=== PATIENT | male | born 1955 | race Caucasian/White ===

== ENCOUNTER 2018-11-06 09:39 | Emergency (ER) | payer MEDICAID ==
[~2018-11-06] VITALS: Ht 175.3 cm; Wt 98.4 kg
--- NOTE | 2018-11-06 10:21 | NUR ---
patient safe in [facility], in obvious pain, IV started by this RN and blood drawn with start, patient experiencing waves/spasms of pain, bladder scan by this RN showing no more than 37mL but patient's report of pain sounds like full bladder sensation. multiple episodes of gross hematuria today passed from penis, no urine flowing to urostomy bag today, patient has tried to flush the ostomy and there was back pressure, flush unsuccessful. This RN to request pain medicine from MD, patient reports 9/10 during spasms.
[2018-11-06] MEDS ORDERED: MORPHINE SULFATE 4 MG/ML, 1ML ONE (10:25)
--- NOTE | 2018-11-06 10:29 | NUR ---
MD Dao at bedside for assessment, verbal order for morphine IV 4 mg which has been given now, verbal order received for irrigation of urostomy tube.
[2018-11-06 10:40] LABS: BASOPHILS # (AUTO) 0.03 x10^3/uL (0-0.1); BASOPHILS % (AUTO) 0 % (0-1); EOSINOPHILS # (AUTO) 0.23 x10^3/uL (0-0.4); EOSINOPHILS % (AUTO) 3 % (1-7); LYMPHOCYTES # (AUTO) 1.14 x10^3/uL (1-3.4); LYMPHOCYTES % (AUTO) 15 % (22-44); MD NO; MEAN CORPUSCULAR HGB CONC 34.7 g/dL (33.2-36.2); MEAN CORPUSCULAR VOLUME 89.3 fL (81-97); MEAN PLATELET VOLUME 8.3 fL (7.4-10.4); MONOCYTES # (AUTO) 0.74 x10^3/uL (0.2-0.8); MONOCYTES % (AUTO) 10 % (2-9); NEUTROPHILS # (AUTO) 5.46 x10^3/uL (1.8-6.8); NEUTROPHILS % (AUTO) 72 % (42-75); PLATELET COUNT 268 x10^3/uL (130-400); RED BLOOD COUNT 4.88 x10^6/uL (4.38-5.82)
[2018-11-06 10:50] LABS: ALBUMIN 3.8 g/dL (3.4-5.0); ANION GAP 8 mmol/L (5-15); CALCIUM 9.5 mg/dL (8.5-10.1); CHLORIDE 106 mmol/L (98-107); CREATININE 0.96 mg/dL (0.7-1.3)
[2018-11-06] MEDS ORDERED: MORPHINE SULFATE 4 MG/ML, 1ML IVPush PRN (11:00)
--- NOTE | 2018-11-06 11:15 | NUR ---
this RN flushed approx 35 mL into patient's urostomy tube, mucus with scant blood has evacuated the tubing, patient voided a small amount of bloody fluid following this flushing. at this time he reports essentially no pain, POC discussed with MD, and straight catheterization to be held, additional flushing with sterile NS to be performed, clean catch UA to be attempted. 2nd dose of morphine available, patient updated of plan.
[2018-11-06 11:44] VITALS: BP 134/71
--- NOTE | 2018-11-06 11:45 | NUR ---
TASK RN: FIRST CONTACT WITH PT: Pt denies pain at this time. Pt states, "I don't know if it was the morphine, but I also was able to empty my bladder and relieve myself." Pt AOX4, NADN. Pt aware of need of urine sample for UA. Pt states, "I can't go now, I have gone three times since I have been here now." Pt educated to press call light button for assistance up to bathroom. Pt states verbal understanding. All safety measures in place. No needs expressed at this time.
--- NOTE | 2018-11-06 12:49 | NUR ---
patient voiding well, dark bloody urine, no discomfort, UA sent to lab, girlfriend accompanying, clean sheets/chucks/gown provided, blankets given, no other needs now.
[2018-11-06 12:50] LABS: CULTURE INDICATED? YES; MICROSCOPIC INDICATED
--- NOTE | 2018-11-06 13:29 | NUR ---
Plan of care discussed with MD Dao upon recheck, he has gone back to bedside for re assessment
--- NOTE | 2018-11-06 13:41 | NUR ---
LAB CALLED CORRECTING ORIGINAL UA REPORT
== END 2018-11-06 14:46 | disposition home or self-care (01) ==
LOC: ED 12:03
DX: N30.01 Acute cystitis with hematuria (principal); Z85.46 Personal history of malignant neoplasm of prostate
CPT/HCPCS: 36415; 80048; 81001; 82040; 85025; 87077; 87086; 87186; 96372; 99283

== ENCOUNTER 2019-01-02 16:09 | Emergency (ER) | payer MEDICAID ==
[~2019-01-02] VITALS: Ht 175.3 cm; Wt 99.7 kg
--- NOTE | 2019-01-02 16:12 | NUR ---
Pt in bathroom when called for triage.
[2019-01-02] MEDS ORDERED: MORPHINE SULFATE 4 MG/ML, 1ML ONE (16:53)
[2019-01-02] MEDS ORDERED: MORPHINE SULFATE 4 MG/ML, 1ML IVPush PRN (17:00)
[2019-01-02] MEDS ORDERED: LIDOCAINE 2%,20 ML JEL.PF.APP MM ONE ×2 (17:03→17:30)
--- NOTE | 2019-01-02 17:19 | NUR ---
pt notes pain level still 8/10, order obtained for dilaudid 1 mg. pt medicated per emar, tolerated well. bp and spo2 monitors in place.
[2019-01-02] MEDS ORDERED: HYDROmorphone 2 MG/ML, 1ML IVPush PRN (17:30)
--- NOTE | 2019-01-02 17:59 | NUR ---
13 F COUDE TIP GONZALEZ CATHETER PLACED PER MD BAÑUELOS'S INSTRUCTIONS. APPROX 400ML URINE DRAINED AT THIS TIME WITH SEVERAL SMALL CLOTS (3-5MM). PINK URINE DRAINING AT THIS TIME. PT REPORTS PAIN LEVEL 1/10 AT THIS TIME. SPO2 89% ON ROOM AIR, OXYGEN APPLIED AT 2L/MIN VIA NC. URINE COLLECTED AND SENT TO LAB.
[2019-01-02 18:28] VITALS: BP 126/54
--- NOTE | 2019-01-02 19:00 | NUR ---
PT GIVEN DC INSTRUCTIONS. GONZALEZ LEG BAG APPLIED. PT BLADDER SCANNED, SHOWED 46 RESIDUAL IN BLADDER. PT DENIES PAIN. GONZALEZ DRAINING CLEAR YELLOW URINE FREELY. PIV DC'D WITH TIP INTACT. PT'S AND PT EDUCATED REGARDING GONZALEZ CARE AND URO FOLLOW UP. PT EDUCATED NOT TO DRIVE TODAY D/T MEDS GIVEN, TO DRIVE HOME. PT A&O, RESPS EVEN AND UNLABORED, SPO2 MAINTAINED >94% ON ROOM AIR AT TIME OF DC. PT AMB TO DC DESK WITH STEADY GAIT, ACCOMAPANIED BY . LÁZARO AT DC.
== END 2019-01-02 22:56 | disposition home or self-care (01) ==
LOC: ED 18:40
DX: R33.8 Other retention of urine (principal); N35.919 Unspecified urethral stricture, male, unspecified site; I10 Essential (primary) hypertension; Z85.46 Personal history of malignant neoplasm of prostate
CPT/HCPCS: 51702; 87086; 96374; 96375; 99284; J1170